=== PATIENT | female | born 1930 | race Hispanic/Latino ===

== ENCOUNTER 2016-06-07 06:41 | Day surgery (SDC) | payer MEDICARE, BC ==
[2016-05-25 10:33] VITALS: BMI 22.2
[2016-06-07 07:48] LABS: ADD MANUAL DIFF? NO
[2016-06-07] MEDS ORDERED: Iohexol 350mgl/ml 50 ML ONE (07:55)
[2016-06-07] MEDS ORDERED: Lidocaine 2% Inj (20ml) ONE (07:55)
[2016-06-07 08:00] LABS: BASO # 0.01 K/mm3 (0.0-2.0); BASO % 0.2 % (0.0-3.0); EOS # 0.1 (0.0-0.7); EOS % 2.2 % (1.5-5.0); GRAN # 4.41 (1.4-6.5); GRAN % 73.1 % (50.0-68.0); LYMPH # 1.1 (1.2-3.4); LYMPH % 18.9 % (22.0-35.0); MEAN CELL VOLUME 91.5 fL (80.0-105.0); MEAN CORPUSCULAR HEMOGLOBIN 30.8 pg (25.0-35.0); MEAN CORPUSCULAR HGB CONC 33.6 g/dl (31.0-37.0); MEAN PLATELET VOLUME 9.7 fl (7.0-11.0); MONO # 0.3 (0.1-0.6); MONO % 5.6 % (1.0-6.0); PLATELET COUNT 237 10^3/uL (120.0-450.0); RED CELL DISTRIBUTION WIDTH 13.7 % (11.5-14.5)
[2016-06-07 08:05] LABS: INR 1.06 (0.93-1.08); PARTIAL THROMBOPLASTIN TIME 26.1 Seconds (23.7-30.8)
[2016-06-07 08:31] LABS: BLOOD UREA NITROGEN 11 mg/dL (7-21); CARBON DIOXIDE 25 mmol/L (21-33); CHLORIDE 104 mmol/L (95-110); GFR AFRICAN-AMERICAN > 60; GLUCOSE,RANDOM 91 mg/dL (70-110); POTASSIUM 4.2 mmol/L (3.6-5.0); SODIUM 140 mmol/L (132-148)
[2016-06-07] MEDS ORDERED: Midazolam 2 MG/2 ML VIAL ONE (08:48)
[2016-06-07] MEDS ORDERED: Sodium Chloride 0.9% 1,000 ML IV SCH (10:00)
[2016-06-07 10:15] VITALS: TEMP 97.6
--- NOTE | 2016-06-07 11:52 | CARDCATH ---
PROCEDURE DATE: 06/07/2016 HISTORY: The patient is an 85-year-old woman with a history of mitral valve replacement in the past, as well as PTCA and stent performed at [facility], who presents with an abnormal stress test. A cardi ac catheterization was recommended. PROCEDURE: Left heart catheterization with coronary angiography, left ventriculogram, supra-aortic v alvular injection were performed. There were no complications. Findings on catheterization revealed a left ventricle that revealed mild LV hypokinesis with an estim ated ejection fraction of 50%. There was no mitral regurgitation. Supra-aortic valvular injection revealed no aortic insufficiency. Coronary angiography revealed a right-dominant circulation. The RCA revealed patent stents in its proximal portion with no critical lesions noted. Left main artery was unremarkable. The LAD revealed diffuse atherosclerosis with an eccentric 50% stenosis in the mid portion making the appearance look more stenotic because of a bend in the area of the stenosis. Diagonal vessels were free of significant disease. The circumflex artery and obtuse marginal branches were free of significant disease. The circumflex artery and obtuse marginal branches were unremarkable. Manual compression was used to close the femoral artery site. The patient tolerated the procedure well. In summary, the procedure revealed preserved left ventricular function. 1. No mitral regurgitation. 2. No aortic insufficiency. 3. Patent stent in the right coronary artery. 4. A 50% stenosis in the mid LAD. Given these findings, the patient's treatment should be continued medical therapy with continued card iac risk reduction program. Matt Rao MD cc: [id number] TT: 06/07/2016 11:51:59 anish
[2016-06-07 13:12] VITALS: RESP 16
[2016-06-07 13:14] VITALS: O2SAT 98
[2016-06-07 14:10] VITALS: BP 154/53; PULSE 55
== END 2016-06-07 16:00 | disposition home or self-care (01) ==
LOC: CATH 06:41
PROVIDERS: ATTEND Internal Medicine Cardiovascular Disease
DX: I25.10 Atherosclerotic heart disease of native coronary artery without angina pectoris (principal); Z95.5 Presence of coronary angioplasty implant and graft; Z95.2 Presence of prosthetic heart valve
CPT/HCPCS: 36415; 80048; 85025; 85610; 85730; 86850; 86900; 93458; 99152; C1769; C2629; J1644; J2250; J3010; J7040 ×2; Q9967